=== PATIENT | male | born 1960 | race Caucasian/White ===

== ENCOUNTER 2022-05-25 07:16 | Inpatient (IN) | payer OTHER, BC ==
[2022-05-25] MEDS ORDERED: fentaNYL 100 MCG/2 ML SDV ONE ×5 (07:33→12:14)
[2022-05-25] MEDS ORDERED: fentaNYL 100 MCG/2 ML SDV IVPUSH ONE ×5 (07:35→12:15)
[2022-05-25] MEDS ORDERED: Lactated Ringers 1,000 ML IV ONE (07:40)
[2022-05-25] MEDS ORDERED: Iopamidol 755 Mg/ML 100 ML Bottle IVPUSH ONE (07:53)
[2022-05-25] MEDS ORDERED: Iopamidol 755 MG/ML 50 ML Bottle IVPUSH ONE (07:53)
[2022-05-25] MEDS ORDERED: Diphtheria,Pertussis(Acell),Tetanus Vaccine 0.5 ML Syringe IM ONE (07:53)
[2022-05-25] MEDS ORDERED: Sodium Chloride 0.9% 10 ML Syringe FLUSH PRN (07:53)
[2022-05-25 08:17] LABS: ESTIMATED GFR 69 mL/min (>60)
[2022-05-25] MEDS ORDERED: oxyCODONE 5 MG Tab PO PRN (10:47)
[2022-05-25] MEDS: Acetaminophen 325 MG Tab PO PRN ×2 (13:06→20:44)
[2022-05-25] MEDS: Ketorolac 30 MG/ML SDV IVPUSH SCH ×2 (14:08→22:26)
[2022-05-25] MEDS: Heparin Sodium 5,000 Units/ML Vial SUBCUT SCH ×2 (15:04→22:27)
[2022-05-25] MEDS: Sodium Chloride 0.9% 1,000 ML IV SCH (15:04)
[2022-05-25] MEDS: HYDROmorphone 0.5 MG/0.5 ML Syringe IVPUSH PRN ×2 (16:39→20:45)
[2022-05-25] MEDS: oxyCODONE 5 MG Tab PO PRN ×2 (17:17→22:26)
[2022-05-25] MEDS ORDERED: Ondansetron 4 MG/2 ML SDV IVPUSH PRN (18:43)
[2022-05-26] MEDS: Sodium Chloride 0.9% 1,000 ML IV SCH ×2 (00:15→13:35)
[2022-05-26] MEDS: HYDROmorphone 0.5 MG/0.5 ML Syringe IVPUSH PRN ×4 (01:57→18:55)
[2022-05-26] MEDS: Acetaminophen 325 MG Tab PO PRN (03:52)
[2022-05-26] MEDS: oxyCODONE 5 MG Tab PO PRN ×5 (03:53→21:29)
[2022-05-26] MEDS: Ketorolac 30 MG/ML SDV IVPUSH SCH ×3 (05:48→21:20)
[2022-05-26] MEDS: Heparin Sodium 5,000 Units/ML Vial SUBCUT SCH ×3 (06:01→22:55)
[2022-05-26] MEDS: Rosuvastatin 10 MG Tab PO SCH (11:37)
[2022-05-27] MEDS: HYDROmorphone 0.5 MG/0.5 ML Syringe IVPUSH PRN ×7 (00:15→23:07)
[2022-05-27] MEDS: oxyCODONE 5 MG Tab PO PRN ×6 (02:06→23:07)
[2022-05-27] MEDS: Sodium Chloride 0.9% 1,000 ML IV SCH (03:05)
[2022-05-27] MEDS: Heparin Sodium 5,000 Units/ML Vial SUBCUT SCH ×3 (06:43→20:49)
[2022-05-27] MEDS: Rosuvastatin 10 MG Tab PO SCH (08:55)
[2022-05-27] MEDS ORDERED: LORazepam 2 MG/ML SDV IVPUSH PRN (09:16)
[2022-05-27] MEDS: Ibuprofen 600 MG Tab PO PRN (19:40)
[2022-05-27] MEDS: Docusate Sodium 100 MG Cap PO PRN (20:49)
[2022-05-28] MEDS: HYDROmorphone 0.5 MG/0.5 ML Syringe IVPUSH PRN ×3 (02:46→09:52)
[2022-05-28] MEDS: oxyCODONE 5 MG Tab PO PRN ×6 (02:57→23:58)
[2022-05-28] MEDS: Heparin Sodium 5,000 Units/ML Vial SUBCUT SCH ×3 (04:23→20:00)
[2022-05-28] MEDS: Docusate Sodium 100 MG Cap PO PRN (04:30)
[2022-05-28] MEDS: Rosuvastatin 10 MG Tab PO SCH (09:52)
[2022-05-28] MEDS: Ibuprofen 600 MG Tab PO PRN ×2 (12:20→18:53)
[2022-05-28] MEDS ORDERED: LORazepam 1 MG Tab PO PRN (13:04)
[2022-05-28] MEDS ORDERED: Sennosides 8.6 MG Tab PO SCH (17:00)
[2022-05-29] MEDS: oxyCODONE 5 MG Tab PO PRN ×2 (03:41→08:36)
[2022-05-29] MEDS: Ibuprofen 600 MG Tab PO PRN ×2 (03:42→10:12)
[2022-05-29] MEDS: Heparin Sodium 5,000 Units/ML Vial SUBCUT SCH (05:10)
[2022-05-29] MEDS: Docusate Sodium 100 MG Cap PO PRN (05:10)
[2022-05-29] MEDS: Rosuvastatin 10 MG Tab PO SCH (08:37)
[2022-05-29] MEDS: Acetaminophen 325 MG Tab PO PRN (10:12)
== END 2022-05-29 10:23 | disposition home or self-care (01) | DRG 347 ==
LOC: JD.ED 07:16 → SUPCPDRO 07:16 → JD.OB 10:45 → JD.ICU 20:14
PROVIDERS: ADMIT Surgery; ATTEND Surgery
DX: S28.0XXA Crushed chest, initial encounter (principal); S22.20XA Unspecified fracture of sternum, initial encounter for closed fracture; V49.3XXA Car occupant (driver) (passenger) injured in unspecified nontraffic accident, initial encounter; Z79.82 Long term (current) use of aspirin; Y92.410 Unspecified street and highway as the place of occurrence of the external cause; Z79.899 Other long term (current) drug therapy
CPT/HCPCS: 36415; 70450; 70450-26; 71046; 71046-26; 71260; 71260-26; 72125; 72125-26; 72131; 72131-26; 74177; 74177-26; 80048; 80053; 82150; 82553; 83605; 84484; 85007; 85027; 85610; 85730; 86850; 86900; 86901; 93005; 93306; 96374; 96376; 97116-GP; 97161-GP; 97166-GO; 97530-GP; 99285-25; A9270-GY; J1170; J1644; J1885; J2060; J2405; J3010; J3490; J7030; J7120; Q9967